=== PATIENT | female | born 1930 | race Two or more races ===

== ENCOUNTER 2020-02-06 21:01 | Emergency (ER) | payer OTHER ==
[~2020-02-06] VITALS: Ht 157.5 cm; Wt 49.4 kg
--- NOTE | 2020-02-06 21:15 | NUR ---
PT BIBRA C/O ABD PAIN, VOMITING, AND NAUSEOUS SINCEE 2PM. PT PLACED ON MONITOR AND PULSE OX. NO ACUTE DISTRESS NOTED. LINE INTIIATED ON HARMONY 20GMD AT BEDSIDE FOR EVAL. WILL CONTINUE TO MONITOR.
[2020-02-06] MEDS ORDERED: ONDANSETRON HCL/PF 4 MG/2 ML VIAL ONE ×2 (21:19→22:43)
[2020-02-06] MEDS ORDERED: MORPHINE SULFATE INJ 4 MG/ML DISP.SYRIN ONE (21:19)
[2020-02-06] MEDS ORDERED: IV NS 0.9% 500 ML BAG IV ONE (21:30)
[2020-02-06] MEDS ORDERED: MORPHINE SULFATE INJ 2 MG/ML DISP.SYRIN IV ONE (21:30)
[2020-02-06] MEDS ORDERED: ONDANSETRON HCL/PF 4 MG/2 ML VIAL IVP ONE (21:30)
[2020-02-06 21:44] LABS: BASOPHILS # (AUTO) 0.1 /CMM (0.0-0.2); BASOPHILS % (AUTO) 0.7 % (0.0-2.0); EOSINOPHILS % (AUTO) 4.4 % (0.0-6.0); HEMATOCRIT 34 % (33-45); HEMOGLOBIN 11.4 g/dL (11.5-14.8); LYMPHOCYTES # (AUTO) 1.2 /CMM (0.8-4.8); LYMPHOCYTES % (AUTO) 13.5 % (20.0-44.0); MEAN CORPUSCULAR HGB CONC 34 g/dl (31.0-36.0); MEAN CORPUSCULAR VOLUME 93 fL (82-100); MONOCYTES # (AUTO) 0.7 /CMM (0.1-1.30); MONOCYTES % (AUTO) 8.5 % (2.0-12.0); NEUTROPHILS # (AUTO) 6.3 /CMM (1.8-8.9); NEUTROPHILS % (AUTO) 72.9 % (43.0-81.0); PLATELET COUNT (AUTO) 302 /CMM (150-450); RED BLOOD CELL COUNT(AUTO) 3.65 MIL/uL (4.0-5.2); WHITE BLOOD COUNT (AUTO) 8.6 K/uL (4.3-11.0)
[2020-02-06] MEDS ORDERED: HYDROMORPHONE 1 MG/1 ML DISP.SYRIN ONE ×2 (21:45→22:43)
--- NOTE | 2020-02-06 21:50 | NUR ---
PT STILL C/O ABD PAIN. AWARE. MED GIVEN.
[2020-02-06 21:52] LABS: ALANINE AMINOTRANSFERASE 19 U/L (12-78); ALBUMIN 3.3 g/dL (3.4-5.0); ALKALINE PHOSPHATASE 131 U/L (46-116); ASPARTATE AMINOTRANSFERASE 29 U/L (15-37); BILIRUBIN,DIRECT 0.1 mg/dL (0.0-0.2); BILIRUBIN,TOTAL 0.4 mg/dL (0.2-1.0); CARBON DIOXIDE 27 mmol/L (21-32); CHLORIDE 101 mmol/L (98-107); CREATININE 1.7 mg/dL (0.6-1.3); GLUCOSE 156 mg/dL (74-106); LIPASE 623 U/L (73-393); POTASSIUM 3.5 mmol/L (3.5-5.1); SODIUM SERUM 140 mmol/L (136-145); TOTAL PROTEIN, SERUM 7.9 g/dL (6.4-8.2); UREA NITROGEN, BLOOD 45 mg/dL (7-18)
[2020-02-06 21:59] LABS: CALCIUM, SERUM 7.3 mg/dL (8.5-10.1)
[2020-02-06] MEDS ORDERED: HYDROMORPHONE 1 MG/1 ML DISP.SYRIN IV ONE ×2 (22:00→23:00)
--- NOTE | 2020-02-06 22:02 | NUR ---
BROUGHT TO CT
--- NOTE | 2020-02-06 22:17 | NUR ---
BACK FROM CT
--- NOTE | 2020-02-06 22:31 | NUR ---
URINE SENT TO LAB
[2020-02-06 22:45] LABS: APPEARANCE,URINE Clear (CLEAR); BILIRUBIN,URINE Negative (NEGATIVE); BLOOD, URINE Negative Ery/uL (NEGATIVE); COLOR,URINE Yellow (YELLOW); KETONES,URINE Negative (NEGATIVE); LEUKOCYTE ESTERASE ,URINE Negative (NEGATIVE); NITRITE, URINE Negative (NEGATIVE); PH,URINE 5.5 (5.0-8.0); PROTEIN,URINE Negative (NEGATIVE); UGLUCOSE Negative (NEGATIVE); UROBILINOGEN,URINE 0.2 EU/dL (0.2)
--- NOTE | 2020-02-06 22:49 | NUR ---
PT STILL COMPLAINING OF ABD PAIN. MD MADE AWARE. VERBAL OPRDER TO GIVE DILAUDID 1MG IV X 1 AND ZOFRAN 4MG IV X 1. NOTED AND CARRIED OUT
[2020-02-06] MEDS ORDERED: ONDANSETRON HCL/PF 4 MG/2 ML VIAL IV ONE (23:00)
--- NOTE | 2020-02-06 23:29 | NUR ---
[facility] EPRP PAGED
--- NOTE | 2020-02-07 00:23 | NUR ---
Patient is resting comfortably in bed. Easily aroused. VSS.
--- NOTE | 2020-02-07 00:54 | NUR ---
PT NOTED WITH DARK RED GASTRIC RESIDUAL FROM NGT. MADE AWARE. NO NEW ORDER RECEIVED
--- NOTE | 2020-02-07 01:16 | NUR ---
[facility] [address] CEJA ALS [id number] PRN
[2020-02-07] MEDS ORDERED: HYDROMORPHONE 1 MG/1 ML DISP.SYRIN ONE (01:54)
--- NOTE | 2020-02-07 01:54 | NUR ---
1MG DILAUDID IVP PER MD
[2020-02-07 01:57] VITALS: BP 127/58
[2020-02-07] MEDS ORDERED: HYDROMORPHONE INJ 0.5 MG/0.5 ML SYRINGE IV ONE (02:00)
--- NOTE | 2020-02-07 02:02 | NUR ---
CALLED [facility] FOR REPORT SPOKE TO JESUS
--- NOTE | 2020-02-07 02:16 | NUR ---
PT TRANSFERED TO [place].
== END 2020-02-07 02:49 | disposition short-term general hospital (02) ==
LOC: ER 21:02 → EDBD 21:02 → ER 02-07 02:49
DX: R10.84 Generalized abdominal pain (principal); R19.7 Diarrhea, unspecified; R11.2 Nausea with vomiting, unspecified; I10 Essential (primary) hypertension; J44.9 Chronic obstructive pulmonary disease, unspecified; Z85.3 Personal history of malignant neoplasm of breast; Z98.890 Other specified postprocedural states; Z90.11 Acquired absence of right breast and nipple; Z88.8 Allergy status to other drugs, medicaments and biological substances
CPT/HCPCS: 36415; 71045; 74176; 80048; 80076; 81001; 83690; 84484; 85025; 93005; 96361; 96374; 96375; 96376 ×2; 99285; J1170 ×3; J2270; J2405 ×2; J7040; 81000-TC; 87081-TC